=== PATIENT | male | born 1975 | race Caucasian/White ===

== ENCOUNTER 2020-02-01 21:06 | Emergency (ER) | payer OTHER ==
[~2020-02-01] VITALS: Ht 188 cm; Wt 99.8 kg
[2020-02-01 21:15] VITALS: BP 130/95
[2020-02-01 22:26] LABS: APPEARANCE,URINE CLEAR (CLEAR); BILIRUBIN,URINE NEGATIVE (NEGATIVE); BLOOD, URINE NEGATIVE (NEGATIVE); COLOR,URINE YELLOW (YELLOW); LEUKOCYTE ESTERASE ,URINE NEGATIVE (NEGATIVE); NITRITE, URINE NEGATIVE (NEGATIVE); UGLUCOSE NEGATIVE (NEGATIVE)
[2020-02-04 07:29] LABS: CHLAMYDIA TRACHOMATIS AMP DNA Negative (Negative)
== END 2020-02-01 23:12 | disposition left against medical advice (07) ==
LOC: MED 21:06
DX: R10.2 Pelvic and perineal pain (principal)
CPT/HCPCS: 36415; 81002; 81003; 87491; 99283

== ENCOUNTER 2022-02-14 19:08 | Emergency (ER) | payer OTHER ==
[~2022-02-14] VITALS: Ht 188 cm; Wt 100.2 kg
[2022-02-14 19:15] VITALS: BP 150/106
--- NOTE | 2022-02-14 19:41 | NUR ---
CALLED FOR PATIENT NO ANSWER
--- NOTE | 2022-02-14 20:15 | NUR ---
CALLED FOR PATIENT NO ANSWER
--- NOTE | 2022-02-14 20:15 | NUR ---
PATIENT LEFT WITHOUT BEING SEEN BY DR. LOVE. NO FURTHER CARE PROVIDED FOR PATIENT.
== END 2022-02-14 20:15 | disposition left against medical advice (07) ==
LOC: MED 19:08
DX: R10.9 Unspecified abdominal pain (principal); R11.0 Nausea; Z53.21 Procedure and treatment not carried out due to patient leaving prior to being seen by health care provider

== ENCOUNTER 2022-07-06 04:35 | Emergency (ER) | payer OTHER ==
[~2022-07-06] VITALS: Ht 188 cm; Wt 95.3 kg
[2022-07-06 04:45] VITALS: BP 147/99
--- NOTE | 2022-07-06 05:39 | NUR ---
Patient taken to bed 2.
--- NOTE | 2022-07-06 05:42 | NUR ---
Dr. Alba examining patient.
[2022-07-06] MEDS ORDERED: MIRABULK PO (06:13)
[2022-07-06] MEDS ORDERED: MAGN296S2 PO (06:13)
[2022-07-06] MEDS ORDERED: IBUP-2213 PO (06:13)
[2022-07-06 06:22] VITALS: BP 141/99
--- NOTE | 2022-07-06 06:22 | NUR ---
Patient discharged with v/s stable. Written and verbal after care instructions given and explained. Patient alert, oriented and verbalized understanding of instructions. Ambulatory with steady gait. All questions addressed prior to discharge. ID band removed. Patient advised to follow up with PMD. Rx of Magnesium Citrate, Ibuprofen and Miralax given. Patient educated on indication of medication including possible reaction and side effects. Opportunity to ask questions provided and answered.
== END 2022-07-06 06:22 | disposition home or self-care (01) ==
LOC: MED 04:35
DX: K59.00 Constipation, unspecified (principal); Z98.890 Other specified postprocedural states
CPT/HCPCS: 99282

== ENCOUNTER 2024-07-20 23:53 | Emergency (ER) | payer BC, OTHER ==
[~2024-07-20] VITALS: Ht 188 cm; Wt 104.3 kg
[~2024-07-20 23:53] MED LIST: IBUP-2213 PO; MAGN296S70 PO; MIRABULK PO
[2024-07-21 00:01] VITALS: BP 153/97; PULSE 106; RESP 16; TEMP 98.2; O2SAT 99
[2024-07-21 01:06] LABS: BILIRUBIN,URINE NEGATIVE (NEGATIVE); BLOOD, URINE NEGATIVE (NEGATIVE); COLOR,URINE YELLOW (YELLOW); LEUKOCYTE ESTERASE ,URINE TRACE (NEGATIVE); NITRITE, URINE NEGATIVE (NEGATIVE); PH,URINE 6.5 (5.0-9.0); PROTEIN,URINE NEGATIVE (NEGATIVE); UGLUCOSE NEGATIVE (NEGATIVE); UROBILINOGEN,URINE 0.2 EU/dL (0.2 - 1)
[2024-07-21 01:08] LABS: APPEARANCE,URINE SLIGHTLY HAZY (CLEAR)
[2024-07-21 01:19] LABS: BACTERIA,URINE 1+ /HPF (None Seen); MUCUS,URINE None Seen /LPF (None Seen); RBC,URINE 0 /HPF (0-5); SQUAMOUS EPITHELIAL CELL,UR 0-3 (FEW) /LPF (0-3 (FEW)); WBC,URINE 0-5 /HPF (0-5)
[2024-07-21] MEDS ORDERED: PRED20TA5 PO (01:42)
[2024-07-21] MEDS ORDERED: CEPH-588 PO (01:42)
[2024-07-21] MEDS ORDERED: DIPH25TA53 PO (01:42)
[2024-07-21 02:10] VITALS: BP 153/97; PULSE 106; RESP 16; TEMP 98.2; O2SAT 99
== END 2024-07-21 02:10 | disposition home or self-care (01) ==
LOC: MED 23:53
DX: R21 Rash and other nonspecific skin eruption (principal); R03.0 Elevated blood-pressure reading, without diagnosis of hypertension; Z79.899 Other long term (current) drug therapy
CPT/HCPCS: 81001; 87086; 99283